=== PATIENT | female | born 1985 | race Caucasian/White ===

== ENCOUNTER 2017-09-17 01:56 | Inpatient (IN) | payer MEDICAID, OTHER ==
[~2017-09-17] VITALS: Ht 170.2 cm; Wt 106.0 kg
[~2017-09-17 01:56] MED LIST: PREN1TAB52 PO
[2017-09-17] MEDS ORDERED: METF500T4 PO (02:17)
[2017-09-17] MEDS ORDERED: HYDR25TA PO (02:17)
[2017-09-17 02:22] LABS: GLUCOSE COMMENT 1 Doctor Notified; GLUCOSE,POINT OF CARE 161 MG/DL (70-110)
[2017-09-17] MEDS ORDERED: CEFTAROLINE 600 MG/D5W 250 ML IV ONE (06:15)
[2017-09-17 07:19] LABS: ANION GAP 10 mmol/L (8-16); CARBON DIOXIDE 30 mmol/L (22-29); CHLORIDE 100 mmol/L (98-107); CREATININE 0.75 mg/dL (0.60-1.30); GLOMERULAR FILTR. RATE CALC > 60 mL/min (>60); POTASSIUM 3.4 mmol/L (3.5-5.1); SODIUM SERUM 140 mmol/L (136-145); UREA NITROGEN, BLOOD 15 mg/dL (7-18)
[2017-09-17 07:25] LABS: ALANINE AMINOTRANSFERASE 63 U/L (12-78); ALBUMIN 3.6 g/dL (3.4-5.0); ASPARTATE AMINOTRANSFERASE 24 U/L (15-37); BILIRUBIN,TOTAL 0.5 mg/dL (0.1-1.0); TOTAL PROTEIN, SERUM 7.4 g/dL (6.4-8.2)
[2017-09-17 08:35] LABS: BASOPHILS # (AUTO) 0.03 K/uL (0.00-0.20); BASOPHILS % (AUTO) 0.5 % (0.0-2.0); EOSINOPHILS % (AUTO) 3.28 % (1.0-6.0); HEMATOCRIT 39.3 % (36-46); HEMOGLOBIN 13.4 g/dL (12.0-16.0); LYMPHOCYTES % (AUTO) 32.4 % (22.0-44.0); MEAN CORPUSCULAR HEMOGLOBIN 29.7 pg (26.0-34.0); MEAN CORPUSCULAR HGB CONC 34.2 G/dL (31.0-37.0); MEAN CORPUSCULAR VOLUME 87 fL (80-100); MONOCYTES # (AUTO) 0.6 K/uL (0.1-1.0); MONOCYTES % (AUTO) 9.3 % (2.0-9.0); NEUTROPHILS # (AUTO) 3.4 K/uL (1.8-7.7); NEUTROPHILS % (AUTO) 54.5 % (40.0-70.0); PLATELET COUNT (AUTO) 229 K/uL (150-450); RED BLOOD CELL COUNT(AUTO) 4.53 MIL/uL (4.00-5.20); RED CELL DISTRIBUTION WIDTH 12.3 % (11.5-14.5); WHITE BLOOD COUNT (AUTO) 6.2 K/uL (4.5-11.0)
[2017-09-17] MEDS ORDERED: IOVERSOL 350 MG/ML 100 ML VIAL ONE (10:32)
[2017-09-17 14:17] LABS: GLUCOSE,POINT OF CARE 172 MG/DL (70-110)
[2017-09-17] MEDS ORDERED: SODIUM CHLORIDE 0.9% 1,000 ML IV ONE (14:30)
[2017-09-17] MEDS ORDERED: OxyCODONE HCL/ACETAMINOPHEN 5-325 MG TABLET PO PRN (14:30)
[2017-09-17] MEDS ORDERED: ZOLPIDEM TARTRATE 5 MG TABLET PO PRN (14:30)
[2017-09-17] MEDS ORDERED: POTASSIUM CHLORIDE 20 MEQ ER TABLET PO PRN (14:30)
[2017-09-17] MEDS ORDERED: ACETAMINOPHEN 325 MG TABLET PO PRN (14:30)
[2017-09-17] MEDS ORDERED: MAGNESIUM HYDROXIDE SUSPENSION 30 ML UDCUP PO PRN (14:30)
[2017-09-17] MEDS ORDERED: POTASSIUM CHL 10 MEQ/WATER 50 ML IV PRN (14:30)
[2017-09-17] MEDS ORDERED: DEXTROSE 50%-WATER 25 GM/50 ML SYRINGE IVP PRN (14:30)
[2017-09-17 14:50] VITALS: BP 123/54
[2017-09-17] MEDS ORDERED: VANCOMYCIN HCL 1.5 GM in DEXTROSE 5%-WATER 250 ML IV ONE (15:00)
[2017-09-17] MEDS ORDERED: SODIUM CHLORIDE 0.9% 500 ML IV ONE (15:55)
[2017-09-17] MEDS ORDERED: PNEUMOCOCCAL VACCINE POLYVALENT 0.5 ML VIAL [PPSV23] IM ONE (16:00)
[2017-09-17] MEDS: HEPARIN SODIUM,PORCINE 5,000 UNITS/ML VIAL SQ SCH ×2 (16:54→23:15)
[2017-09-17 18:08] LABS: GLUCOSE,POINT OF CARE 161 MG/DL (70-110)
[2017-09-17 19:23] VITALS: BP 117/69
[2017-09-17] MEDS: DOCUSATE SODIUM 100 MG CAPSULE PO SCH (20:33)
[2017-09-17 20:47] LABS: GLUCOSE COMMENT 1 Received Meds; GLUCOSE,POINT OF CARE 143 MG/DL (70-110)
[2017-09-17] MEDS: INSULIN ASPART 100 UNITS/ML SQ PRN (20:48)
[2017-09-17] MEDS: VANCOMYCIN HCL 1.25 GM in DEXTROSE 5%-WATER 250 ML IV SCH (23:15)
[2017-09-18 00:23] VITALS: BP 112/62
[2017-09-18 04:11] VITALS: BP 121/64
[2017-09-18] MEDS: INSULIN ASPART 100 UNITS/ML SQ PRN ×2 (06:19→11:27)
[2017-09-18 06:28] LABS: GLUCOSE COMMENT 1 Received Meds; GLUCOSE,POINT OF CARE 145 MG/DL (70-110)
[2017-09-18] MEDS: VANCOMYCIN HCL 1.25 GM in DEXTROSE 5%-WATER 250 ML IV SCH (06:31)
[2017-09-18 06:33] LABS: ANION GAP 9 mmol/L (8-16); CALCIUM, TOTAL 8.3 mg/dL (8.8-10.5); CARBON DIOXIDE 26 mmol/L (22-29); CHLORIDE 103 mmol/L (98-107); CREATININE 0.77 mg/dL (0.60-1.30); GLOMERULAR FILTR. RATE CALC > 60 mL/min (>60); POTASSIUM 3.3 mmol/L (3.5-5.1); SODIUM SERUM 138 mmol/L (136-145); UREA NITROGEN, BLOOD 6 mg/dL (7-18)
[2017-09-18 06:59] LABS: HEMOGLOBIN A1C 6.6 % (4.5-6.2)
[2017-09-18] MEDS: HEPARIN SODIUM,PORCINE 5,000 UNITS/ML VIAL SQ SCH (08:13)
[2017-09-18] MEDS: DOCUSATE SODIUM 100 MG CAPSULE PO SCH (08:13)
[2017-09-18 08:52] VITALS: BP 129/77
[2017-09-18] MEDS ORDERED: PANTOPRAZOLE SODIUM 40 MG DR TABLET PO SCH (09:00)
[2017-09-18] MEDS ORDERED: SULF1TAB42 PO (10:38)
[2017-09-18 11:26] VITALS: BP 127/66
[2017-09-18 11:48] LABS: GLUCOSE COMMENT 1 Received Meds; GLUCOSE,POINT OF CARE 153 MG/DL (70-110)
== END 2017-09-18 11:48 | disposition home or self-care (01) | DRG 383 ==
LOC: EMS 01:57 → 6N 14:00
PROVIDERS: ADMIT Internal Medicine; ATTEND Internal Medicine
PROC: 3E0234Z Introduction of Serum, Toxoid and Vaccine into Muscle, Percutaneous Approach (ICD-10-PCS; principal; 2017-09-17)
DX: L03.116 Cellulitis of left lower limb (principal); E11.9 Type 2 diabetes mellitus without complications; E66.9 Obesity, unspecified; Z68.36 Body mass index [BMI] 36.0-36.9, adult; Z87.59 Personal history of other complications of pregnancy, childbirth and the puerperium; Z87.891 Personal history of nicotine dependence; Z23 Encounter for immunization
CPT/HCPCS: 73701; 82962; 83036; 90471; 93971; 96365; 99285; J0712; J1644; J3370; J7030; J7040; J7060